=== PATIENT | male | born 1965 | race African-American/Black ===

== ENCOUNTER 2023-07-30 11:06 | Outpatient (CLI) | payer OTHER, SELFPAY ==
[2023-07-30 12:17] LABS: Liquefaction Semen Complete in 30 min. (<30 minutes); Semen Color Opaque (Grey-opaque); Semen Immotility 60 %; Semen Non-Progressive Motility 10 %; Semen Progressive Motility 30 % (>32); Semen Total Motility 40 (>40% (PM+NP)); Semen Viscosity Not Increased (Not Increa.)
[2023-07-30 12:18] LABS: Semen Morphology Result to Follow; Sperm Count 9.9 Mil/mL (60-150 million/mL)
[2023-08-07 00:08] LABS: Fructose, Semen 240 mg/dL (150-600)
== END 2023-07-30 11:07 | disposition home or self-care (01) ==
LOC: CHSLAB 11:12
PROVIDERS: Visit Provider Obstetrics & Gynecology
DX: Z31.41 Encounter for fertility testing (principal)
CPT/HCPCS: 82757; 88160; 89320